=== PATIENT | female | born 1975 | race Caucasian/White ===

== ENCOUNTER 2019-02-27 10:46 | Emergency (ER) | payer OTHER ==
[~2019-02-27] VITALS: Ht 167.6 cm; Wt 81.4 kg
[2019-02-27 10:51] VITALS: TEMP 97.1
[2019-02-27 11:19] LABS: BASO % 0.7 % (0.0-2.0); EOS % 0.4 % (0-4.0); GRAN # 3.6 (1.4-6.5); GRAN % 66.9 % (42.2-75.2); HEMATOCRIT 38.2 % (37.0-47.0); HEMOGLOBIN 12.4 g/dl (12.5-16.0); LYMPH # 1.4 (1.2-3.4); LYMPH % 26.4 % (20.0-51.0); MEAN CELL VOLUME 86 fl (80.0-100.0); MEAN CORPUSCULAR HEMOGLOBIN 28 pg (27.0-31.0); MEAN CORPUSCULAR HGB CONC 33 g/dl (33.0-37.0); MEAN PLATELET VOLUME 10.1 fl (7.4-10.4); MONO # 0.3 (0.1-0.6); MONO % 5.2 % (1.7-9.3); PLATELET COUNT 319 K/mm3 (130-400); RED BLOOD COUNT 4.46 M/mm3 (4.10-5.30); REDCELL DISTRIBUTION WIDTH-CV 13.7 % (11.5-14.5)
[2019-02-27 11:32] LABS: ALANINE AMINOTRANSFERASE 11 U/L (9-52); ALBUMIN 4.5 gm/dL (3.5-5.0); ALKALINE PHOSPHATASE 91 U/L (50-136); ANION GAP 13 mmol/L (7-16); AST,SGOT 22 U/L (15-37); BILIRUBIN,TOTAL 0.6 mg/dL (0.0-1.0); BLOOD UREA NITROGEN 8 mg/dL (7-17); CARBON DIOXIDE 23 mmol/L (22-30); CHLORIDE 106 mmol/L (98-107); CREATININE, serum 0.83 (0.52-1.25); GLUCOSE 100 mg/dL (74-106); POTASSIUM 3.9 mmol/L (3.4-5.0); SODIUM 142 mmol/L (137-145); TOTAL PROTEIN 8.2 gm/dL (6.4-8.2)
[2019-02-27 11:47] LABS: TROPONIN-I < 0.012 ng/mL (0.000-0.035)
[2019-02-27] MEDS ORDERED: BONINE25 MG PO (13:09)
[2019-02-27 14:00] VITALS: BP 114/72; PULSE 62
== END 2019-02-27 14:02 | disposition home or self-care (01) ==
LOC: COL.ER 10:46
PROVIDERS: Physician Assistant
DX: R07.89 Other chest pain (principal); R42 Dizziness and giddiness; R00.2 Palpitations
CPT/HCPCS: J7030

== ENCOUNTER → 2019-05-24 | Outpatient (CLI) | payer OTHER ==
[~2019-05-24] VITALS: Ht 167.6 cm; Wt 80.0 kg
[~2019-05-24] MED LIST: BONINE25 MG PO; NORA-BE0.35 MG PO; ZYRTEC 10MG10 MG PO
[2019-05-24 09:30] VITALS: BP 130/90; PULSE 70
[2019-05-24 10:15] VITALS: BP 144/83; PULSE 72
== END ==
LOC: COL.RAD 09:00
DX: E04.1 Nontoxic single thyroid nodule (principal)

== ENCOUNTER → 2019-10-15 | Outpatient (CLI) | payer OTHER | LOC: COL.RAD 07:21 | DX: R22.2 Localized swelling, mass and lump, trunk (principal) | CPT/HCPCS: A9585 ==

== ENCOUNTER → 2019-10-26 | Outpatient (CLI) | payer OTHER | LOC: COL.RAD 10-25 13:15 | DX: R10.30 Lower abdominal pain, unspecified (principal); Z90.710 Acquired absence of both cervix and uterus ==